=== PATIENT | female | born 1960 | race African-American/Black ===

== ENCOUNTER 2016-08-20 10:05 | Emergency (ER) | payer MEDICAID ==
[~2016-08-20] VITALS: Ht 165.1 cm; Wt 111.0 kg
[2016-08-20 10:41] VITALS: BP 132/93
== END 2016-08-20 12:30 | disposition home or self-care (01) ==
LOC: ER 11:31
DX: H66.91 Otitis media, unspecified, right ear (principal); Z88.2 Allergy status to sulfonamides
CPT/HCPCS: 99283

== ENCOUNTER 2021-06-09 16:20 | Emergency (ER) | payer MEDICAID ==
[~2021-06-09] VITALS: Ht 170.2 cm; Wt 100.0 kg
[2021-06-09 16:33] VITALS: BP 165/80
== END 2021-06-09 19:40 | disposition left against medical advice (07) ==
LOC: ER 16:20
DX: R00.2 Palpitations (principal); Z88.2 Allergy status to sulfonamides
CPT/HCPCS: 71045; 93005; 99283